=== PATIENT | female | born 1955 | race Caucasian/White ===

== ENCOUNTER 2018-06-22 13:28 | Emergency (ER) | payer MEDICARE, OTHER ==
[2018-06-22] MEDS ORDERED: Dexamethasone 4 mg/ml Vial ONE (14:36)
[2018-06-22] MEDS ORDERED: Ketorolac Tromethamine 30 MG/ML VIAL ONE (14:36)
--- NOTE | 2018-06-22 14:55 | CT ---
CT OF THE BRAIN WITHOUT CONTRAST: COMPARISON: None. HISTORY: Sudden onset of left temporoparietal headache 3 days ago. TECHNIQUE: Multiple contiguous axial images were obtained in a CT of the brain without contrast. FINDINGS: The brain is normal in morphology and attenuation without focal lesions or confluent areas of infarct ion. There is no evidence of hydrocephalus, intracranial hemorrhage, or extraaxial fluid collection. Fluid is seen in the frontal sinuses. The mastoid air cells are well aerated. IMPRESSION: No evidence of acute intracranial abnormality. POS: [facility]
== END 2018-06-22 15:25 | disposition home or self-care (01) ==
LOC: MADERS 13:28
DX: J01.10 Acute frontal sinusitis, unspecified (principal); E11.9 Type 2 diabetes mellitus without complications; E05.90 Thyrotoxicosis, unspecified without thyrotoxic crisis or storm; Z79.899 Other long term (current) drug therapy; Z79.84 Long term (current) use of oral hypoglycemic drugs
CPT/HCPCS: 70450; 96372; J1100; J1885

== ENCOUNTER 2018-08-04 11:24 | Emergency (ER) | payer MEDICARE, OTHER ==
[2018-08-04 12:01] LABS: #Lymphocytes 1.5 thou/uL (1.20-3.40); #Monocytes 0.3 thou/uL (0.11-0.59); #Neutrophils 2.5 thou/uL (1.40-6.50); %Basophils 0.8 % (0.0-1.0); %Eosinophils 0.1 % (0.0-10.0); %Lymphocytes 34.2 % (21.0-51.0); %Monocytes 5.9 % (0.0-10.0); %Neutrophils 59.1 % (42.0-75.0); Mean Corpuscular HGB CONC 31.6 g/dL (32.0-36.0); Mean Corpuscular Hemoglobin 27.5 pg (27.0-31.0); Mean Platelet Volume 7.7 fL (7.4-10.4); Platelet Count 154 thou/uL (130-400); RBC Distribution Width 12.5 % (11.5-14.5); Red Blood Cell (RBC) Count 4.74 mill/uL (4.20-5.40); White Blood Cell (WBC) Count 4.2 thou/uL (4.8-10.8)
[2018-08-04 12:17] LABS: ALT (SGPT) 110 U/L (8-55); AST (SGOT) 72 U/L (5-34); Albumin 4.1 g/dL (3.4-4.8); Alkaline Phosphatase 106 U/L (40-150); Anion Gap 12 mmol/L (10-20); BUN (Urea Nitrogen) 11 mg/dL (9.8-20.1); Bilirubin, Total 0.9 mg/dL (0.2-1.2); Calc. Creatinine Clearance 0 mL/min (70-130); Calcium 9.3 mg/dL (7.8-10.44); Carbon Dioxide 22 mmol/L (23-31); Chloride 104 mmol/L (98-107); Estimated GFR-MDRD 62; Globulin 2.5 g/dL (2.4-3.5); Glucose 422 mg/dL (80-115); Potassium 4.2 mmol/L (3.5-5.1); Protein, Total 6.6 g/dL (6.0-8.3); Sodium 134 mmol/L (136-145)
[2018-08-04 12:31] LABS: Bilirubin Negative (Negative); Blood, Urine Negative (Negative); Clarity Clear (Clear); Glucose, Urine (Dipstick) 500 mg/dL (Negative); Leukocyte Negative (Negative); Nitrite Negative (Negative); Protein, Urine (Dipstick) Negative (Neg-Trace); Urobilinogen 0.2 mg/dL (0.2-1.0)
[2018-08-04] MEDS ORDERED: Aspirin 325 MG TAB ONE (12:42)
[2018-08-04] MEDS ORDERED: Insulin Regular 300 UNITS/3 ML VIAL ONE (12:43)
--- NOTE | 2018-08-04 13:55 | RAD ---
TWO VIEWS CHEST: DATE: 08/04/2018. PROVIDED CLINICAL HISTORY: Chest pain. FINDINGS: Comparison 12/19/2011. Cardiac and mediastinal silhouette is within normal limits. Lungs appear clear . No pleural fluid or pneumothorax apparent. IMPRESSION: No evidence for an acute cardiopulmonary process. POS: [facility]
== END 2018-08-04 13:36 | disposition short-term general hospital (02) ==
LOC: MADERS 11:24
DX: I20.0 Unstable angina (principal); R74.8 Abnormal levels of other serum enzymes; E11.65 Type 2 diabetes mellitus with hyperglycemia; E05.90 Thyrotoxicosis, unspecified without thyrotoxic crisis or storm; E78.5 Hyperlipidemia, unspecified; Z79.84 Long term (current) use of oral hypoglycemic drugs; Z79.899 Other long term (current) drug therapy
CPT/HCPCS: 36415; 36416; 71046; 80053; 81003; 83880; 84443; 84484; 85025; 93005; J1815

== ENCOUNTER 2018-08-26 13:56 | Emergency (ER) | payer MEDICARE, OTHER | END 2018-08-26 15:04 | disposition home or self-care (01) | LOC: MADERS 13:56 | DX: S16.1XXA Strain of muscle, fascia and tendon at neck level, initial encounter (principal); E11.9 Type 2 diabetes mellitus without complications; E05.90 Thyrotoxicosis, unspecified without thyrotoxic crisis or storm; Z79.84 Long term (current) use of oral hypoglycemic drugs; Z79.899 Other long term (current) drug therapy; X58.XXXA Exposure to other specified factors, initial encounter | CPT/HCPCS: 99283 ==

== ENCOUNTER 2019-06-23 08:02 | Emergency (ER) | payer MEDICARE, MEDICAID ==
--- NOTE | 2019-06-23 08:31 | RAD ---
EXAM: Single view of the chest HISTORY: Chest pain COMPARISON: 08/25/2018 FINDINGS: Single view of the chest shows a normal sized cardiomediastinal silhouette. There is no pedro dence of consolidation, mass, or pleural effusion. The bones are unremarkable. IMPRESSION: No evidence of acute cardiopulmonary disease
[2019-06-23] MEDS ORDERED: Aspirin Chewable 81 MG TAB ONE (08:33)
[2019-06-23 08:38] LABS: #Basophils 0.1 thou/uL (0.0-0.2); #Lymphocytes 1.2 thou/uL (1.20-3.40); #Monocytes 0.2 thou/uL (0.11-0.59); #Neutrophils 2.9 thou/uL (1.40-6.50); %Basophils 1.4 % (0.0-1.0); %Eosinophils 0.1 % (0.0-10.0); %Lymphocytes 27.4 % (21.0-51.0); %Monocytes 5.4 % (0.0-10.0); %Neutrophils 65.6 % (42.0-75.0); Hemoglobin 12.9 g/dL (12.0-16.0); Mean Corpuscular HGB CONC 31.3 g/dL (32.0-36.0); Mean Corpuscular Volume 89.5 fL (78.0-98.0); Mean Platelet Volume 9.3 fL (7.4-10.4); Platelet Count 153 thou/uL (130-400); RBC Distribution Width 12.4 % (11.5-14.5); Red Blood Cell (RBC) Count 4.59 mill/uL (4.20-5.40); White Blood Cell (WBC) Count 4.4 thou/uL (4.8-10.8)
[2019-06-23 08:53] LABS: ALT (SGPT) 52 U/L (8-55); AST (SGOT) 45 U/L (5-34); Albumin 3.9 g/dL (3.4-4.8); Alkaline Phosphatase 85 U/L (40-110); Anion Gap 15 mmol/L (10-20); BUN (Urea Nitrogen) 11 mg/dL (9.8-20.1); Bilirubin, Total 0.5 mg/dL (0.2-1.2); CK (CPK) 42 U/L (29-168); Calc. Creatinine Clearance 0 mL/min (70-130); Calcium 8.6 mg/dL (7.8-10.44); Carbon Dioxide 22 mmol/L (23-31); Chloride 105 mmol/L (98-107); Estimated GFR-MDRD 67; Globulin 2.4 g/dL (2.4-3.5); Glucose 378 mg/dL (80-115); Potassium 3.5 mmol/L (3.5-5.1); Protein, Total 6.3 g/dL (6.0-8.3); Sodium 138 mmol/L (136-145)
[2019-06-23 08:54] LABS: CKMB 0.6 ng/mL (0-6.6)
== END 2019-06-23 09:40 | disposition home or self-care (01) ==
LOC: MADERS 08:02
DX: I10 Essential (primary) hypertension (principal); R07.89 Other chest pain; E11.9 Type 2 diabetes mellitus without complications; E05.90 Thyrotoxicosis, unspecified without thyrotoxic crisis or storm; E78.5 Hyperlipidemia, unspecified; E78.00 Pure hypercholesterolemia, unspecified; Z79.899 Other long term (current) drug therapy; Z79.84 Long term (current) use of oral hypoglycemic drugs
CPT/HCPCS: 71045; 80053; 82550; 82553; 84484; 85025; 93005; 94760

== ENCOUNTER 2019-09-13 20:40 | Emergency (ER) | payer MEDICARE, MEDICAID ==
[2019-09-13] MEDS ORDERED: Ketorolac Tromethamine 30 MG/ML VIAL ONE (21:33)
--- NOTE | 2019-09-13 21:56 | RAD ---
XR Ribs Lt>=2 View W/PA CXR HISTORY: Left lateral rib pain COMPARISON: Chest radiograph of 06/23/2019 FINDINGS: The heart size is normal. The lungs are well expanded without lobar consolidation, pneumoth oraces or pleural effusions. No left-sided rib fracture is seen. IMPRESSION: No acute process.
== END 2019-09-13 22:27 | disposition home or self-care (01) ==
LOC: MADERS 20:40
DX: R07.82 Intercostal pain (principal); E11.9 Type 2 diabetes mellitus without complications; E78.5 Hyperlipidemia, unspecified; E78.00 Pure hypercholesterolemia, unspecified; Z79.84 Long term (current) use of oral hypoglycemic drugs; Z79.899 Other long term (current) drug therapy; X50.1XXA Overexertion from prolonged static or awkward postures, initial encounter
CPT/HCPCS: 96372; J1885

== ENCOUNTER 2020-02-06 09:22 | Emergency (ER) | payer MEDICARE, OTHER ==
[2020-02-06 10:30] LABS: #Lymphocytes 1.3 thou/uL (1.20-3.40); #Monocytes 0.2 thou/uL (0.11-0.59); #Neutrophils 3.5 thou/uL (1.40-6.50); %Basophils 0.7 % (0.0-1.0); %Eosinophils 0.1 % (0.0-10.0); %Lymphocytes 26.1 % (21.0-51.0); %Monocytes 4.7 % (0.0-10.0); %Neutrophils 68.5 % (42.0-75.0); Hemoglobin 12.4 g/dL (12.0-16.0); Mean Corpuscular HGB CONC 32.7 g/dL (32.0-36.0); Mean Corpuscular Hemoglobin 28.4 pg (27.0-31.0); Mean Corpuscular Volume 86.9 fL (78.0-98.0); Mean Platelet Volume 8.9 fL (7.4-10.4); Platelet Count 157 thou/uL (130-400); Red Blood Cell (RBC) Count 4.38 mill/uL (4.20-5.40); White Blood Cell (WBC) Count 5.2 thou/uL (4.8-10.8)
[2020-02-06 10:47] LABS: ALT (SGPT) 54 U/L (8-55); AST (SGOT) 42 U/L (5-34); Albumin 3.8 g/dL (3.4-4.8); Alkaline Phosphatase 98 U/L (40-110); Anion Gap 17 mmol/L (10-20); BUN (Urea Nitrogen) 12 mg/dL (9.8-20.1); Bilirubin, Total 0.7 mg/dL (0.2-1.2); Calc. Creatinine Clearance 0 mL/min (70-130); Calcium 8.6 mg/dL (7.8-10.44); Carbon Dioxide 24 mmol/L (23-31); Chloride 101 mmol/L (98-107); Estimated GFR-MDRD 69; Globulin 2.5 g/dL (2.4-3.5); Glucose 270 mg/dL (80-115); Potassium 4.2 mmol/L (3.5-5.1); Protein, Total 6.3 g/dL (6.0-8.3); Sodium 138 mmol/L (136-145)
[2020-02-06 10:48] LABS: CRP (Inflammatory) 0.6 mg/dL (= or < 0.5); Magnesium 1.5 mg/dL (1.6-2.6)
== END 2020-02-06 11:20 | disposition home or self-care (01) ==
LOC: MADERS 09:22
DX: M79.18 Myalgia, other site (principal); E11.9 Type 2 diabetes mellitus without complications; E03.9 Hypothyroidism, unspecified; E05.90 Thyrotoxicosis, unspecified without thyrotoxic crisis or storm; E78.5 Hyperlipidemia, unspecified; E78.00 Pure hypercholesterolemia, unspecified; Z79.84 Long term (current) use of oral hypoglycemic drugs; Z79.899 Other long term (current) drug therapy
CPT/HCPCS: 36415; 80053; 82550; 83735; 84443; 85025; 86140; 99283

== ENCOUNTER 2020-04-30 10:21 | Outpatient (CLI) | payer MEDICARE, OTHER ==
[2020-04-30 10:49] LABS: #Basophils 0.1 thou/uL (0.0-0.2); #Lymphocytes 1.6 thou/uL (1.20-3.40); #Monocytes 0.3 thou/uL (0.11-0.59); #Neutrophils 3.4 thou/uL (1.40-6.50); %Basophils 1.1 % (0.0-1.0); %Lymphocytes 29.3 % (21.0-51.0); %Monocytes 6.2 % (0.0-10.0); %Neutrophils 63.4 % (42.0-75.0); Hemoglobin 13.8 g/dL (12.0-16.0); Mean Corpuscular Hemoglobin 28.7 pg (27.0-31.0); Mean Corpuscular Volume 87.1 fL (78.0-98.0); Mean Platelet Volume 7.8 fL (7.4-10.4); Platelet Count 185 thou/uL (130-400); RBC Distribution Width 12.2 % (11.5-14.5); White Blood Cell (WBC) Count 5.3 thou/uL (4.8-10.8)
[2020-04-30 11:02] LABS: ALT (SGPT) 31 U/L (8-55); AST (SGOT) 26 U/L (5-34); Albumin 4.3 g/dL (3.4-4.8); Alkaline Phosphatase 70 U/L (40-110); Anion Gap 16 mmol/L (10-20); BUN (Urea Nitrogen) 10 mg/dL (9.8-20.1); Bilirubin, Total 0.6 mg/dL (0.2-1.2); Calc. Creatinine Clearance 0 mL/min (70-130); Calcium 8.8 mg/dL (7.8-10.44); Carbon Dioxide 23 mmol/L (23-31); Cardiac Risk 3.2 (Less than 4.5); Chloride 105 mmol/L (98-107); Cholesterol 185 mg/dl (< 200 Desired); Globulin 2.7 g/dL (2.4-3.5); Glucose 142 mg/dL (80-115); HDL Cholesterol 58 mg/dL (>60 Neg Risk); LDL Cholesterol, Calculated 106 mg/dL; Sodium 140 mmol/L (136-145); Triglycerides 107 mg/dL (Less than 150)
[2020-04-30 11:03] LABS: CKMB 0.8 ng/mL (0-6.6); Troponin I 0.013 ng/mL (< 0.028)
--- NOTE | 2020-04-30 11:05 | RAD ---
TWO VIEW CHEST: HISTORY: Chest pain, hypertension. COMPARISON: 08/25/2018. FINDINGS: Lungs appear clear of infiltrate. Mild stranding in the left peripheral lower lung is stable. A sma ll nodular density in the peripheral left mid lung near the chest wall is stable. Vascular markings within normal range. No effusion. Osseous structures are unremarkable. IMPRESSION: No acute process identified. POS: [facility]
[2020-04-30 11:17] LABS: Thyroid Stimulating Hormone 3.4269 uIU/mL (0.35-4.94)
[2020-04-30 16:48] LABS: Hemoglobin A1c 7.8 % (4.0-6.0)
[2020-04-30 17:06] LABS: Free T4 (Free Thyroxine) 1.01 ng/dL (0.70-1.48)
== END 2020-04-30 10:22 | disposition home or self-care (01) ==
LOC: MADLAB 10:21
PROVIDERS: ATTEND Family Medicine
DX: R07.9 Chest pain, unspecified (principal); E11.9 Type 2 diabetes mellitus without complications; E03.9 Hypothyroidism, unspecified; E78.2 Mixed hyperlipidemia; G40.909 Epilepsy, unspecified, not intractable, without status epilepticus
CPT/HCPCS: 36415; 71046; 80053; 80061; 80183; 82553; 83036; 84439; 84443; 84484; 85025; 93005; 93010

== ENCOUNTER 2020-07-15 09:50 | Outpatient (CLI) | payer MEDICARE, OTHER | END 2020-07-15 09:51 | disposition home or self-care (01) | LOC: MADCT 09:50 | PROVIDERS: ATTEND Family Medicine | DX: G40.909 Epilepsy, unspecified, not intractable, without status epilepticus (principal); R51.9 Headache, unspecified; R29.6 Repeated falls | CPT/HCPCS: 70450 ==

== ENCOUNTER 2020-10-11 21:14 | Emergency (ER) | payer MEDICARE, OTHER ==
[~2020-10-11 21:14] MED LIST: Iopamidol 370 76% 100 ML VIAL ONE; Sodium Chloride 0.9% 1,000 ML BAG ONE; Sodium Chloride 0.9% 100 ML BAG ONE
[2020-10-11 21:59] LABS: #Basophils 0.1 thou/uL (0.0-0.2); Hemoglobin 13.2 g/dL (12.0-16.0); Mean Corpuscular HGB CONC 31.7 g/dL (32.0-36.0); Mean Corpuscular Volume 91.3 fL (78.0-98.0); RBC Distribution Width 12.5 % (11.5-14.5)
[2020-10-11 22:00] LABS: #Lymphocytes 1.7 thou/uL (1.20-3.40); #Monocytes 0.3 thou/uL (0.11-0.59); %Basophils 1.8 % (0.0-1.0); %Eosinophils 0.2 % (0.0-10.0); %Lymphocytes 33.3 % (21.0-51.0); %Neutrophils 58.7 % (42.0-75.0); Mean Platelet Volume 9.1 fL (7.4-10.4); Platelet Count 175 thou/uL (130-400); Red Blood Cell (RBC) Count 4.56 mill/uL (4.20-5.40); White Blood Cell (WBC) Count 5.2 thou/uL (4.8-10.8)
[2020-10-11] MEDS ORDERED: Dicyclomine 10 MG CAP ONE (22:09)
[2020-10-11 22:19] LABS: ALT (SGPT) 23 U/L (8-55); AST (SGOT) 20 U/L (5-34); Acetaminophen Less than 6.0 mcg/mL (10.0-30.0); Albumin 4.1 g/dL (3.4-4.8); Alkaline Phosphatase 77 U/L (40-110); Anion Gap 13 mmol/L (10-20); BUN (Urea Nitrogen) 8 mg/dL (9.8-20.1); Bilirubin, Total 0.5 mg/dL (0.2-1.2); CK (CPK) 127 U/L (29-168); Calc. Creatinine Clearance 0 mL/min (70-130); Calcium 8.7 mg/dL (7.8-10.44); Carbon Dioxide 26 mmol/L (23-31); Chloride 105 mmol/L (98-107); Globulin 2.4 g/dL (2.4-3.5); Glucose 335 mg/dL (80-115); Lipase 49 U/L (8-78); Magnesium 1.8 mg/dL (1.6-2.6); Protein, Total 6.5 g/dL (5.8-8.1); Sodium 140 mmol/L (136-145)
[2020-10-11] MEDS ORDERED: Insulin Regular 300 UNITS/3 ML VIAL ONE (22:33)
[2020-10-11] MEDS ORDERED: cefTRIAXone\\ROCEPHIN 1 GM VIAL ONE (22:33)
[2020-10-11 22:54] LABS: Bilirubin Negative (Negative); Blood, Urine Negative (Negative); Clarity Clear (Clear); Glucose, Urine (Dipstick) >=1000 mg/dL (Negative); Ketone, Urine Negative (Negative); Leukocyte Negative (Negative); Nitrite Negative (Negative); Protein, Urine (Dipstick) Negative (Neg-Trace); Urobilinogen 0.2 mg/dL (Less than 2); pH, Urine 6.5 (5.0-9.0)
[2020-10-11] MEDS ORDERED: Acetaminophen 500 MG TAB ONE (23:43)
[2020-10-12 00:58] LABS: Lactic Acid 0.8 mmol/L (0.5-2.2)
== END 2020-10-12 01:17 | disposition home or self-care (01) ==
LOC: MADERS 21:14
DX: E11.65 Type 2 diabetes mellitus with hyperglycemia (principal); R19.7 Diarrhea, unspecified; R10.816 Epigastric abdominal tenderness; R10.9 Unspecified abdominal pain; E03.9 Hypothyroidism, unspecified; E11.9 Type 2 diabetes mellitus without complications; E05.90 Thyrotoxicosis, unspecified without thyrotoxic crisis or storm; E78.5 Hyperlipidemia, unspecified; E78.00 Pure hypercholesterolemia, unspecified; G40.909 Epilepsy, unspecified, not intractable, without status epilepticus
CPT/HCPCS: 36415; 36416; 74177; 80053; 80143; 81003; 82550; 83605; 83690; 83735; 83880; 84484; 85025; 87040; 87149; 93005; 96365; 96375; 80307; J0696; J1815; J3490; J7050; Q9967

== ENCOUNTER 2020-11-10 11:27 | Outpatient (CLI) | payer MEDICARE, OTHER | END 2020-11-10 11:28 | disposition home or self-care (01) | LOC: MADRAD 11:27 | PROVIDERS: ATTEND Family Medicine | DX: M25.562 Pain in left knee (principal); M17.12 Unilateral primary osteoarthritis, left knee ==

== ENCOUNTER 2021-11-18 14:24 | Emergency (ER) | payer MEDICARE, OTHER | END 2021-11-18 15:32 | disposition home or self-care (01) | LOC: MADERS 14:24 | DX: J06.9 Acute upper respiratory infection, unspecified (principal); E11.9 Type 2 diabetes mellitus without complications; E78.5 Hyperlipidemia, unspecified; E78.00 Pure hypercholesterolemia, unspecified; E03.9 Hypothyroidism, unspecified; G40.409 Other generalized epilepsy and epileptic syndromes, not intractable, without status epilepticus; Z20.822 Contact with and (suspected) exposure to COVID-19; Z79.84 Long term (current) use of oral hypoglycemic drugs; Z79.899 Other long term (current) drug therapy | CPT/HCPCS: 71045; U0003; U0005 ==

== ENCOUNTER 2022-04-17 17:56 | Emergency (ER) | payer OTHER ==
[2022-04-17 19:04] LABS: Bilirubin Small (Negative); Blood, Urine Large (Negative); Glucose, Urine (Dipstick) Negative (Negative); Ketone, Urine Trace mg/dL (Negative); Leukocyte Large (Negative); Nitrite Positive (Negative); Protein, Urine (Dipstick) > or equal to 300 mg/dL (Neg-Trace); Specific Gravity, Urine 1.025 (1.005-1.030)
[2022-04-17 19:07] LABS: Clarity Cloudy (Clear)
[2022-04-17 19:16] LABS: Bacteria/HPF 2+ HPF (None Seen); RBC/HPF Greater than 50 HPF (0-3); Squamous Epithelial 0-3 HPF (0-3); WBC/HPF Greater Than 50 HPF (0-3)
[2022-04-17 20:09] LABS: #Basophils 0.1 thou/uL (0.0-0.2); #Lymphocytes 1.4 thou/uL (1.20-3.40); #Monocytes 0.5 thou/uL (0.11-0.59); #Neutrophils 8.3 thou/uL (1.40-6.50); %Basophils 0.8 % (0.0-1.0); %Eosinophils 0.1 % (0.0-10.0); %Lymphocytes 13.8 % (21.0-51.0); %Monocytes 4.4 % (0.0-10.0); %Neutrophils 80.9 % (42.0-75.0); Hemoglobin 13.6 g/dL (12.0-16.0); Mean Corpuscular HGB CONC 32.7 g/dL (32.0-36.0); Mean Corpuscular Hemoglobin 28.5 pg (27.0-31.0); Mean Corpuscular Volume 87.2 fl (78.0-98.0); Mean Platelet Volume 6.8 fL (7.4-10.4); Platelet Count 425 10x3/uL (130-400); RBC Distribution Width 11.7 % (11.5-14.5); Red Blood Cell (RBC) Count 4.78 mill/uL (4.20-5.40); White Blood Cell (WBC) Count 10.2 10x3/uL (4.8-10.8)
[2022-04-17] MEDS ORDERED: Sodium Chloride 0.9% 1,000 ML ONE (20:10)
[2022-04-17] MEDS ORDERED: cefTRIAXone\\ROCEPHIN 1 GM VIAL ONE (20:10)
[2022-04-17] MEDS ORDERED: Promethazine HCl 25 MG/ML VIAL ONE (20:10)
[2022-04-17] MEDS ORDERED: Ketorolac Tromethamine 30 MG/ML VIAL ONE (20:10)
[2022-04-17] MEDS ORDERED: Sodium Chloride 0.9% 100 ML ONE (20:11)
[2022-04-17 20:29] LABS: ALT (SGPT) 18 U/L (8-55); AST (SGOT) 15 U/L (5-34); Alkaline Phosphatase 132 U/L (40-110); Anion Gap 15 mmol/L (10-20); BUN (Urea Nitrogen) 6 mg/dL (9.8-20.1); Bilirubin, Total 0.9 mg/dL (0.2-1.2); CK (CPK) 88 U/L (29-168); Calc. Creatinine Clearance 0 mL/min (70-130); Calcium 9.6 mg/dL (7.8-10.44); Carbon Dioxide 29 mmol/L (23-31); Chloride 99 mmol/L (98-107); Estimated GFR 81; Globulin 3.7 g/dL (2.4-3.5); Glucose 180 mg/dL (80-115); Lipase 23 U/L (8-78); Magnesium 2.1 mg/dL (1.6-2.6); Potassium 3.7 mmol/L (3.5-5.1); Protein, Total 7.7 g/dL (5.8-8.1); Sodium 139 mmol/L (136-145)
[2022-04-17] MEDS ORDERED: Benzonatate 100 MG CAP ONE (21:16)
[2022-04-17] MEDS ORDERED: Albuterol 200 PUFF (6.7GM INHALER) ONE (22:12)
== END 2022-04-17 22:45 | disposition home or self-care (01) ==
LOC: MADERS 17:56
DX: N39.0 Urinary tract infection, site not specified (principal); J06.9 Acute upper respiratory infection, unspecified; R19.7 Diarrhea, unspecified; R11.0 Nausea; E03.9 Hypothyroidism, unspecified; E11.9 Type 2 diabetes mellitus without complications; E78.00 Pure hypercholesterolemia, unspecified; Z79.899 Other long term (current) drug therapy; Z79.84 Long term (current) use of oral hypoglycemic drugs
CPT/HCPCS: 71046; 74176; 80053; 81003; 81015; 82550; 83605; 83690; 83735; 85025; 87040; 87077; 87086; 87186; 93005; 94760; 96361; 96365; 96368; 96375; J0696; J1885; J2550; J3490; J7050

== ENCOUNTER 2022-12-29 11:50 | Emergency (ER) | payer OTHER ==
[~2022-12-29 11:50] MED LIST changes: -Sodium Chloride 0.9% 1,000 ML BAG ONE; -Sodium Chloride 0.9% 100 ML BAG ONE
[2022-12-29] MEDS ORDERED: Sodium Chloride 0.9% 1,000 ML ONE (12:07)
[2022-12-29] MEDS ORDERED: Ondansetron PF 4 MG/2 ML Vial ONE (12:07)
[2022-12-29 12:15] LABS: #Basophils 0.1 thou/uL (0.0-0.2); #Lymphocytes 0.8 thou/uL (1.20-3.40); #Monocytes 0.4 thou/uL (0.11-0.59); #Neutrophils 2.9 thou/uL (1.40-6.50); %Basophils 2.4 % (0.0-1.0); %Eosinophils 0.3 % (0.0-10.0); %Lymphocytes 18.5 % (21.0-51.0); %Monocytes 8.4 % (0.0-10.0); %Neutrophils 70.4 % (42.0-75.0); Hematocrit 45.1 % (36.0-47.0); Hemoglobin 14.5 g/dL (12.0-16.0); Mean Corpuscular HGB CONC 32.2 g/dL (32.0-36.0); Mean Corpuscular Hemoglobin 28.6 pg (27.0-31.0); Mean Corpuscular Volume 88.6 fl (78.0-98.0); Mean Platelet Volume 9.6 fL (7.4-10.4); Platelet Count 151 10x3/uL (130-400); RBC Distribution Width 13.9 % (11.5-14.5); Red Blood Cell (RBC) Count 5.09 mill/uL (4.20-5.40); White Blood Cell (WBC) Count 4.2 10x3/uL (4.8-10.8)
[2022-12-29 12:29] LABS: ALT (SGPT) 18 U/L (8-55); AST (SGOT) 26 U/L (5-34); Albumin 4.4 g/dL (3.4-4.8); Alkaline Phosphatase 86 U/L (40-110); Anion Gap 14 mmol/L (10-20); BUN (Urea Nitrogen) 14 mg/dL (9.8-20.1); Bilirubin, Total 1.1 mg/dL (0.2-1.2); Calc. Creatinine Clearance 0 mL/min (70-130); Calcium 9.2 mg/dL (7.8-10.44); Carbon Dioxide 25 mmol/L (23-31); Chloride 105 mmol/L (98-107); Estimated GFR 61; Globulin 2.8 g/dL (2.4-3.5); Glucose 182 mg/dL (80-115); Lipase 27 U/L (8-78); Potassium 3.9 mmol/L (3.5-5.1); Protein, Total 7.2 g/dL (5.8-8.1); Sodium 140 mmol/L (136-145)
[2022-12-29] MEDS ORDERED: Acetaminophen 325 MG TAB ONE (12:39)
[2022-12-29 13:01] LABS: Bilirubin Moderate (Negative); Blood, Urine Negative (Negative); Clarity Slightly Cloudy (Clear); Glucose, Urine (Dipstick) Negative (Negative); Ketone, Urine Trace mg/dL (Negative); Leukocyte Large (Negative); Nitrite Negative (Negative); Protein, Urine (Dipstick) 100 mg/dL (Neg-Trace); pH, Urine 5.5 (5.0-9.0)
[2022-12-29 13:06] LABS: Specific Gravity, Urine 1.023 (1.002-1.036)
[2022-12-29 13:07] LABS: Bacteria/HPF 1+ HPF (None Seen); CAUTI Indications for Culture Dysuria,urgency,freq; RBC/HPF 0-3 HPF (0-3); WBC/HPF 21-50 HPF (0-3)
[2022-12-29 13:09] LABS: Urine Culture Reflex Yes Yes
== END 2022-12-29 14:21 | disposition home or self-care (01) ==
LOC: MADERS 11:50
DX: K52.9 Noninfective gastroenteritis and colitis, unspecified (principal); N39.0 Urinary tract infection, site not specified; E03.9 Hypothyroidism, unspecified; E11.9 Type 2 diabetes mellitus without complications; E78.00 Pure hypercholesterolemia, unspecified
CPT/HCPCS: 74177; 80053; 81001; 83690; 85025; 87086; 96361; 96374; J2405; J7050; Q9967

== ENCOUNTER 2023-04-07 21:26 | Emergency (ER) | payer OTHER ==
[2023-04-07] MEDS ORDERED: Acetaminophen 500 MG TAB ONE (22:20)
== END 2023-04-07 22:31 | disposition home or self-care (01) ==
LOC: MADERS 21:26
DX: S80.01XA Contusion of right knee, initial encounter (principal); S90.01XA Contusion of right ankle, initial encounter; E11.9 Type 2 diabetes mellitus without complications; W18.30XA Fall on same level, unspecified, initial encounter

== ENCOUNTER 2023-05-15 14:44 | Outpatient (CLI) | payer OTHER | END 2023-05-15 14:45 | disposition home or self-care (01) | LOC: MADLAB 14:44 | PROVIDERS: ATTEND Internal Medicine | DX: R05.9 Cough, unspecified (principal) | CPT/HCPCS: 71046 ==

== ENCOUNTER 2023-06-19 13:26 | Outpatient (CLI) | payer OTHER | END 2023-06-19 13:27 | disposition home or self-care (01) | LOC: MADRAD 13:26 | PROVIDERS: ATTEND Internal Medicine | DX: M25.561 Pain in right knee (principal); M17.11 Unilateral primary osteoarthritis, right knee ==

== ENCOUNTER 2024-03-11 08:34 | Emergency (ER) | payer OTHER ==
[2024-03-11] MEDS ORDERED: Iopamidol 370 76% 100 ML VIAL ONE (09:00)
[2024-03-11 09:07] LABS: #Basophils 0.1 thou/uL (0.0-0.2); #Lymphocytes 1.6 thou/uL (1.20-3.40); #Monocytes 0.4 thou/uL (0.11-0.59); #Neutrophils 5.1 thou/uL (1.40-6.50); %Eosinophils 0.1 % (0.0-10.0); %Lymphocytes 22.4 % (21.0-51.0); %Monocytes 5.1 % (0.0-10.0); %Neutrophils 71.3 % (42.0-75.0); Hematocrit 40.1 % (36.0-47.0); Mean Corpuscular HGB CONC 32.4 g/dL (32.0-36.0); Mean Corpuscular Hemoglobin 28.8 pg (27.0-31.0); Mean Corpuscular Volume 88.6 fl (78.0-98.0); Mean Platelet Volume 8.7 fL (7.4-10.4); Platelet Count 184 10x3/uL (130-400); RBC Distribution Width 12.3 % (11.5-14.5); Red Blood Cell (RBC) Count 4.52 mill/uL (4.20-5.40); White Blood Cell (WBC) Count 7.2 10x3/uL (4.8-10.8)
[2024-03-11] MEDS ORDERED: Ondansetron PF 4 MG/2 ML Vial ONE (09:10)
[2024-03-11] MEDS ORDERED: Mag-Al 1200 mg/1200 mg/30 ML UDCUP ONE (09:11)
[2024-03-11] MEDS ORDERED: Pantoprazole 40 MG VIAL ONE (09:11)
[2024-03-11] MEDS ORDERED: Lidocaine Viscous Sol 2% 15 ml UD Cup ONE (09:11)
[2024-03-11] MEDS ORDERED: Aspirin Chewable 81 MG TAB ONE (09:11)
[2024-03-11 09:21] LABS: ALT (SGPT) 18 U/L (8-55); AST (SGOT) 13 U/L (5-34); Albumin 3.9 g/dL (3.4-4.8); Alkaline Phosphatase 80 U/L (40-110); Anion Gap 16 mmol/L (10-20); BUN (Urea Nitrogen) 9 mg/dL (9.8-20.1); Bilirubin, Total 0.7 mg/dL (0.2-1.2); Calc. Creatinine Clearance 0 mL/min (70-130); Calcium 8.9 mg/dL (7.8-10.44); Carbon Dioxide 19 mmol/L (23-31); Chloride 107 mmol/L (98-107); Estimated GFR 74; Globulin 2.8 g/dL (2.4-3.5); Glucose 228 mg/dL (80-115); Lipase 32 U/L (8-78); Protein, Total 6.7 g/dL (5.8-8.1)
[2024-03-11 09:24] LABS: Troponin I Less than 0.010 ng/mL (< 0.028)
[2024-03-11 09:25] LABS: Sodium 138 mmol/L (136-145)
[2024-03-11 10:24] LABS: Bilirubin Negative (Negative); Blood, Urine Negative (Negative); Glucose, Urine (Dipstick) 100 mg/dL (Negative); Ketone, Urine Negative (Negative); Leukocyte Large (Negative); Nitrite Negative (Negative); Protein, Urine (Dipstick) Negative (Neg-Trace); Urobilinogen 0.2 mg/dL (Less than 2); pH, Urine 5.5 (5.0-9.0)
[2024-03-11 10:25] LABS: Bacteria/HPF 2+ HPF (None Seen); CAUTI Indications for Culture Dysuria,urgency,freq; Clarity Hazy (Clear); RBC/HPF 0-3 HPF (0-3)
[2024-03-11 10:27] LABS: Urine Culture Reflex Yes Yes
[2024-03-11 13:05] LABS: Troponin I Less than 0.010 ng/mL (< 0.028)
== END 2024-03-11 15:18 | disposition short-term general hospital (02) ==
LOC: MADERS 08:34
DX: R07.2 Precordial pain (principal); E11.9 Type 2 diabetes mellitus without complications; I10 Essential (primary) hypertension; E78.00 Pure hypercholesterolemia, unspecified; E03.9 Hypothyroidism, unspecified; Z87.891 Personal history of nicotine dependence; Z79.899 Other long term (current) drug therapy; Z79.85 Long-term (current) use of injectable non-insulin antidiabetic drugs
CPT/HCPCS: 71045; 71275; 80053; 81001; 83690; 83880; 84484; 85025; 85379; 87086; 93005; 94760; 96374; 96375; J2405; J2470; Q9967

== ENCOUNTER 2024-07-10 07:42 | Outpatient (CLI) | payer OTHER, MEDICAID | END 2024-07-10 07:43 | disposition home or self-care (01) | LOC: MADRAD 07:42 | PROVIDERS: ATTEND Family Medicine | DX: M54.50 Low back pain, unspecified (principal); M54.2 Cervicalgia; M47.812 Spondylosis without myelopathy or radiculopathy, cervical region; Z98.890 Other specified postprocedural states | CPT/HCPCS: 72040; 72110 ==

== ENCOUNTER 2025-05-08 16:42 | Emergency (ER) | payer OTHER ==
[2025-05-08] MEDS ORDERED: CEFAZOLIN 1 GM VIAL ONE (18:16)
[2025-05-08] MEDS ORDERED: Lidocaine 1%/Epinephrine 1:100K 10 ML VIAL ONE (19:04)
== END 2025-05-08 19:25 | disposition home or self-care (01) ==
LOC: MADERS 16:42
DX: L03.311 Cellulitis of abdominal wall (principal); L02.211 Cutaneous abscess of abdominal wall; E11.9 Type 2 diabetes mellitus without complications; I10 Essential (primary) hypertension; Z87.891 Personal history of nicotine dependence
CPT/HCPCS: 96372; 99283; J0690; J1885